=== PATIENT | female | born 1955 | race Caucasian/White ===

== ENCOUNTER 2020-09-25 08:04 | Day surgery (SDC) | payer OTHER ==
[~2020-09-25] VITALS: Ht 154.9 cm; Wt 46.4 kg
[~2020-09-25 08:04] MED LIST: LANS15CA15 PO; SUCR1ORA2 PO
[2020-09-25 08:30] VITALS: BP 124/80
[2020-09-25] MEDS ORDERED: [UNRECOGNIZED DRUG - OTHER] PO (08:40)
[2020-09-25] MEDS ORDERED: PROTEIN DRINK (08:40)
[2020-09-25] MEDS ORDERED: [UNRECOGNIZED DRUG - OTHER] (08:40)
[2020-09-25] MEDS ORDERED: PROPOLIS (08:40)
[2020-09-25] MEDS ORDERED: MELATONIN PO (08:40)
[2020-09-25] MEDS ORDERED: [UNRECOGNIZED DRUG - OTHER] (08:40)
[2020-09-25] MEDS ORDERED: [UNRECOGNIZED DRUG - OTHER] PO (08:40)
[2020-09-25] MEDS ORDERED: OMEGA 3 PO (08:40)
[2020-09-25] MEDS ORDERED: ALBU18HF2 INH (08:40)
[2020-09-25] MEDS ORDERED: GREEN (08:40)
[2020-09-25] MEDS ORDERED: ESTRODIM PO (08:40)
[2020-09-25 08:46] VITALS: BP 109/87
[2020-09-25 09:30] VITALS: BP 115/83
== END 2020-09-25 09:25 | disposition home or self-care (01) ==
LOC: SSTAY O 08:04
PROVIDERS: ATTEND Radiology Vascular & Interventional Radiology
DX: R18.8 Other ascites (principal); J91.8 Pleural effusion in other conditions classified elsewhere; Z53.8 Procedure and treatment not carried out for other reasons; C57.8 Malignant neoplasm of overlapping sites of female genital organs; C79.9 Secondary malignant neoplasm of unspecified site; B18.2 Chronic viral hepatitis C
CPT/HCPCS: 76604; 76705

== ENCOUNTER 2020-09-28 08:05 | Day surgery (SDC) | payer OTHER ==
[~2020-09-28] VITALS: Ht 154.9 cm; Wt 47.3 kg
[~2020-09-28 08:05] MED LIST changes: +ALBU18HF2 INH; +ESTRODIM PO; +GREEN; -LANS15CA15 PO; +MELATONIN PO; +OMEGA 3 PO; +PROPOLIS; +PROTEIN DRINK; -SUCR1ORA2 PO; +[UNRECOGNIZED DRUG - OTHER]; +[UNRECOGNIZED DRUG - OTHER]; +[UNRECOGNIZED DRUG - OTHER] PO; +[UNRECOGNIZED DRUG - OTHER] PO
[2020-09-28 08:18] VITALS: BP 129/79
[2020-09-28] MEDS ORDERED: albumin 25% 100mL bottle x 1 IV PRN (08:25)
[2020-09-28 09:50] VITALS: BP 149/70
[2020-09-28 10:00] VITALS: BP 133/85
[2020-09-28 10:15] VITALS: BP 120/84
[2020-09-28 10:30] VITALS: BP 122/92
== END 2020-09-28 10:40 | disposition home or self-care (01) ==
LOC: SSTAY O 08:05
PROVIDERS: ATTEND Radiology Diagnostic Radiology
DX: J90 Pleural effusion, not elsewhere classified (principal); R18.8 Other ascites; R14.0 Abdominal distension (gaseous); Z86.19 Personal history of other infectious and parasitic diseases; Z87.19 Personal history of other diseases of the digestive system; Z85.43 Personal history of malignant neoplasm of ovary; Z85.44 Personal history of malignant neoplasm of other female genital organs; Z72.89 Other problems related to lifestyle; Z90.710 Acquired absence of both cervix and uterus; Z90.49 Acquired absence of other specified parts of digestive tract
CPT/HCPCS: 32555; 76705

== ENCOUNTER 2020-11-30 06:45 | Day surgery (SDC) | payer OTHER ==
[~2020-11-30] VITALS: Ht 154.9 cm; Wt 46.3 kg
[~2020-11-30 06:45] MED LIST changes: -ALBU18HF2 INH
[2020-11-30] MEDS ORDERED: albumin 25% 100mL bottle x 1 IV PRN (07:00)
[2020-11-30] MEDS ORDERED: OMEGA PO (07:20)
[2020-11-30] MEDS ORDERED: ASPI-1265 PO (07:20)
[2020-11-30] MEDS ORDERED: naltrexone PO (07:20)
[2020-11-30 07:24] VITALS: BP 135/86
[2020-11-30 08:31] VITALS: BP 131/101
[2020-11-30 08:45] VITALS: BP 132/84
== END 2020-11-30 09:15 | disposition home or self-care (01) ==
LOC: SSTAY O 06:45
PROVIDERS: ATTEND Radiology Diagnostic Radiology
DX: R18.8 Other ascites (principal); Z53.8 Procedure and treatment not carried out for other reasons; R14.0 Abdominal distension (gaseous); J90 Pleural effusion, not elsewhere classified; Z85.43 Personal history of malignant neoplasm of ovary; Z87.19 Personal history of other diseases of the digestive system; Z86.19 Personal history of other infectious and parasitic diseases; Z90.49 Acquired absence of other specified parts of digestive tract; Z90.710 Acquired absence of both cervix and uterus; Z72.89 Other problems related to lifestyle; Z79.899 Other long term (current) drug therapy
CPT/HCPCS: 76705

== ENCOUNTER 2021-03-16 10:53 | Emergency (ER) | payer OTHER ==
[~2021-03-16] VITALS: Ht 154.9 cm; Wt 45.5 kg
[~2021-03-16 10:53] MED LIST changes: +ASPI-1265 PO; -ESTRODIM PO; -OMEGA 3 PO; +OMEGA PO; -PROPOLIS; -[UNRECOGNIZED DRUG - OTHER] PO; +naltrexone PO
[2021-03-16 11:53] LABS: BASOPHILS # (AUTO) 0.1 X10'3 (0-0.2); BASOPHILS % (AUTO) 0.6 % (0-1); EOSINOPHILS # (AUTO) 0.1 X10'3 (0-0.9); EOSINOPHILS % (AUTO) 0.7 % (0-6); HEMATOCRIT 32.5 % (35.0-45.0); HEMOGLOBIN 11.2 g/dl (12.0-16.0); LYMPHOCYTES # (AUTO) 1.3 X10'3 (1.1-4.8); LYMPHOCYTES % (AUTO) 15.4 % (21-51); MEAN CORPUSCULAR HEMOGLOBIN 33.9 PG (27.0-31.0); MEAN CORPUSCULAR HGB CONC 34.4 g/dL (33.0-36.5); MEAN CORPUSCULAR VOLUME 98.5 FL (78-98); MEAN PLATELET VOLUME 7.4 FL (7.4-10.4); MONOCYTES # (AUTO) 0.7 X10'3 (0-0.9); MONOCYTES % (AUTO) 8.8 % (2-12); NEUTROPHILS # (AUTO) 6.2 X10'3 (1.8-7.7); NEUTROPHILS % (AUTO) 74.5 % (42-75); PLATELET COUNT 552 X10'3 (140-440); RED CELL DISTRIBUTION WIDTH 15.1 % (11.5-14.5); WHITE BLOOD COUNT 8.3 X10'3 (4.5-11.0)
[2021-03-16 12:13] LABS: ALANINE AMINOTRANSFERASE 30 U/L (12-78); ALBUMIN 3.2 G/DL (3.4-5.0); ALBUMIN/GLOBULIN RATIO 0.8 (1.1-1.5); ALKALINE PHOSPHATASE 70 IU/L (46-116); ANION GAP 11 (8-16); ASPARTATE AMINO TRANSFERASE 32 U/L (10-37); BILIRUBIN,TOTAL 0.4 MG/DL (0.1-1.0); BLOOD UREA NITROGEN 14 MG/DL (7-18); BUN/CREATININE RATIO 15.9 (6.6-38.0); CALCIUM 8.8 MG/DL (8.5-10.1); CHLORIDE 103 MMOL/L (99-107); CREATININE 0.88 MG/DL (0.40-0.90); GLUCOSE 126 MG/DL (70-104); SODIUM 140 MMOL/L (135-145); TOTAL PROTEIN 7.4 G/DL (6.4-8.2); eGFR 65 ML/MIN
--- NOTE | 2021-03-16 13:36 | NUR ---
Pt is sitting at the bedside to eat. Uses the bedside commode. C/O severe NAQVI. MD is aware.
[2021-03-16 13:44] LABS: TROPONIN I < 0.04 NG/ML (0.0-0.05)
[2021-03-16 14:25] VITALS: BP 118/79
== END 2021-03-16 15:10 | disposition home or self-care (01) ==
LOC: ER 10:53
DX: J90 Pleural effusion, not elsewhere classified (principal); R18.8 Other ascites; Z79.899 Other long term (current) drug therapy
CPT/HCPCS: 36415; 71045; 71275; 80053; 84484; 85025; 85610; 93005; 99285

== ENCOUNTER 2021-03-19 06:02 | Day surgery (SDC) | payer OTHER ==
[~2021-03-19] VITALS: Ht 152.4 cm; Wt 47.6 kg
[~2021-03-19 06:02] MED LIST changes: +iohexol 350MG/ML 100ml bottle IV ONE
[2021-03-19] MEDS ORDERED: METF-950 PO (06:36)
[2021-03-19] MEDS ORDERED: ASCO100089 PO (06:36)
[2021-03-19 06:38] VITALS: BP 113/79
[2021-03-19] MEDS ORDERED: albumin 25% 100mL bottle x 1 IV PRN (06:45)
[2021-03-19] MEDS ORDERED: normal saline 1000ml 1,000 ML IV PRN (06:45)
[2021-03-19 08:30] VITALS: BP 115/88
[2021-03-19 08:45] VITALS: BP 120/85
[2021-03-19 09:00] VITALS: BP 106/56
[2021-03-19 09:15] VITALS: BP 104/52
== END 2021-03-19 09:30 | disposition home or self-care (01) ==
LOC: SSTAY O 06:02
PROVIDERS: ATTEND Radiology Diagnostic Radiology
DX: R18.8 Other ascites (principal); J90 Pleural effusion, not elsewhere classified; R14.0 Abdominal distension (gaseous); Z86.19 Personal history of other infectious and parasitic diseases; Z90.710 Acquired absence of both cervix and uterus; Z90.49 Acquired absence of other specified parts of digestive tract; Z98.890 Other specified postprocedural states; Z79.899 Other long term (current) drug therapy; Z80.3 Family history of malignant neoplasm of breast; Z82.3 Family history of stroke
CPT/HCPCS: 32555; 36415; 76705; Q9967; U0003

== ENCOUNTER 2021-07-30 07:34 | Day surgery (SDC) | payer MEDICARE, OTHER ==
[2021-07-30] VITALS (8 sets, daily range): BP systolic 114–147; BP diastolic 76–90
[~2021-07-30] VITALS: Ht 154.9 cm; Wt 47.0 kg
[~2021-07-30 07:34] MED LIST changes: +ASCO100089 PO; +METF-1203 PO; -iohexol 350MG/ML 100ml bottle IV ONE
[2021-07-30] MEDS ORDERED: LIDOcaine 1% 30ml preserv. free vial IJ STA (07:40)
[2021-07-30] MEDS ORDERED: albumin 25% 100mL bottle x 1 IV PRN (08:00)
== END 2021-07-30 10:15 | disposition home or self-care (01) ==
LOC: SSTAY O 07:34
PROVIDERS: ATTEND Radiology Vascular & Interventional Radiology
DX: J90 Pleural effusion, not elsewhere classified (principal); Z20.822 Contact with and (suspected) exposure to COVID-19; Z87.19 Personal history of other diseases of the digestive system; Z85.43 Personal history of malignant neoplasm of ovary; Z90.49 Acquired absence of other specified parts of digestive tract; Z90.710 Acquired absence of both cervix and uterus; Z72.89 Other problems related to lifestyle; Z79.84 Long term (current) use of oral hypoglycemic drugs; Z79.899 Other long term (current) drug therapy; Z80.3 Family history of malignant neoplasm of breast; Z82.3 Family history of stroke
CPT/HCPCS: 32555; 87635; C9803; J3490

== ENCOUNTER 2021-08-19 07:39 | Day surgery (SDC) | payer MEDICARE, OTHER ==
[~2021-08-19] VITALS: Ht 154.9 cm; Wt 48.2 kg
[~2021-08-19 07:39] MED LIST changes: -ASPI-1265 PO; -GREEN; -PROTEIN DRINK
[2021-08-19] MEDS ORDERED: ONDA-104 PO (08:00)
[2021-08-19] MEDS ORDERED: albumin 25% 100mL bottle x 1 IV PRN (08:00)
[2021-08-19] MEDS ORDERED: POTA-82 PO (08:01)
[2021-08-19] MEDS ORDERED: LIDOcaine 1%/PF 5ML 10 MG/ML VIAL SQ ONE (08:20)
[2021-08-19 08:36] VITALS: BP 155/88
[2021-08-19 09:15] VITALS: BP 125/89
[2021-08-19 09:30] VITALS: BP 121/59
[2021-08-19 09:45] VITALS: BP 113/86
[2021-08-19 10:20] VITALS: BP 127/90
[2021-08-19 10:35] VITALS: BP 143/108
== END 2021-08-19 09:45 | disposition home or self-care (01) ==
LOC: SSTAY O 07:39
PROVIDERS: ATTEND Preventive Medicine Aerospace Medicine
DX: R18.8 Other ascites (principal); R14.0 Abdominal distension (gaseous); J90 Pleural effusion, not elsewhere classified; Z86.19 Personal history of other infectious and parasitic diseases; Z85.43 Personal history of malignant neoplasm of ovary; Z79.899 Other long term (current) drug therapy; Z90.49 Acquired absence of other specified parts of digestive tract; Z90.710 Acquired absence of both cervix and uterus; Z72.89 Other problems related to lifestyle
CPT/HCPCS: 32555; 49083